=== PATIENT | female | born 1960 | race Caucasian/White ===

== ENCOUNTER → 2016-06-27 | Outpatient (CLI) | payer OTHER | END | disposition home or self-care (01) | LOC: MAMMO 15:26 | PROVIDERS: ATTEND Family Medicine | DX: Z12.31 Encounter for screening mammogram for malignant neoplasm of breast (principal) | CPT/HCPCS: G0202; 77067 ==

== ENCOUNTER → 2017-07-17 | Outpatient (CLI) | payer OTHER ==
--- NOTE | 2017-07-17 15:41 | RAD ---
Bone densitometry scan, 07/17/2017: History: Baseline screening, ovarian failure The lumbar spine and right hip were examined utilizing a DEXA technique. The bone mineral density in the lumbar spine as measured from the L1-L4 levels is 1.11 g/sq cm. This yields a T score of - 0.6 which is in the normal range. The total T score at the right hip is - 0.3, also in the normal range. IMPRESSION: Normal bone mineral density measurements.
--- NOTE | 2017-07-18 09:21 | RAD ---
DATE: 07/17/2017 EXAM: MAMMO BOBBY SCREENING BILATERAL HISTORY: Routine screening COMPARISON: 06/27/2016 This study was interpreted with the benefit of Computerized Aided Detection (CAD). The breast parenchyma is primarily fatty replaced. Breast parenchyma level density A. FINDINGS: 2-D and 3-D tomosynthesis imaging was performed in CC and MLO projections. There is a smooth 6 mm nodule in the right breast located just superior and medial to the midline. It measured 3-4 mm on the previous study. Several other scattered smooth nodules, predominantly in the left breast appear to be unchanged. Minimal benign type calcifications present. No suspicious microcalcifications have developed. IMPRESSION: A small right breast nodule has increased in size since 06/27/2016. Sonographic evaluation is suggested. BI-RADS CATEGORY: 0 INCOMPLETE: NEEDS ADDITIONAL IMAGING EVALUATION AND/OR PRIOR MAMMOGRAMS FOR COMPARISON. RECOMMENDED FOLLOW-UP: ADD ADDITIONAL IMAGING PQRS compliance statement: Patient information was entered into a reminder system with a target due date for the next mammogram. Mammography is a sensitive method for finding small breast cancers, but it does not detect them all and is not a substitute for careful clinical examination. A negative mammogram does not negate a clinically suspicious finding and should not result in delay in biopsying a clinically suspicious abnormality. "Our facility is accredited by the [employer] Mammography Program."
== END | disposition home or self-care (01) ==
LOC: DXRAD 14:54
PROVIDERS: ATTEND Family Medicine
DX: Z12.31 Encounter for screening mammogram for malignant neoplasm of breast (principal); E28.39 Other primary ovarian failure
CPT/HCPCS: 77063; 77067; 77080

== ENCOUNTER → 2017-07-24 | Outpatient (CLI) | payer OTHER ==
--- NOTE | 2017-07-24 13:33 | RAD ---
Right breast ultrasound, 07/17/2017: History: Breast nodule A targeted ultrasound exam of the right breast was performed in the upper inner quadrant. A small 5 mm hypoechoic nodule is identified at the 1:00 location, approximately 4 cm in the nipple. It lies posteriorly and probably corresponds to the mammographic abnormality. Its margins are smooth. No definite posterior acoustic enhancement or shadowing is seen. It is rounded in configuration. No internal color flow is seen. This is probably a complicated cyst. A hypovascular homogeneous solid nodule cannot be entirely excluded. No other abnormality is seen in this region. IMPRESSION: Probable benign right breast nodule as described above. Follow-up imaging beginning with repeat right breast ultrasound in 4-6 months is suggested to confirm that this is a benign process. BI-RADS 3-probably benign findings
== END | disposition home or self-care (01) ==
LOC: US 12:50
PROVIDERS: ATTEND Family Medicine
DX: R92.8 Other abnormal and inconclusive findings on diagnostic imaging of breast (principal)
CPT/HCPCS: 76641

== ENCOUNTER → 2017-10-17 | Day surgery (SDC) | payer OTHER ==
[~2017-10-17] MED LIST: ATROPINE 0.5 MG/5 ML DISP.SYRIN. IV PRN; HYDR25TA9 PO; IV RINGERS SOLUTION,LACTATED 1,000 ML IV SCH; LIDOCAINE 2% PF Vial for OR 5 ML VIAL. ONE; LISI10TA2 PO; NALOXONE 0.4 MG/ML VIAL. IV PRN; ONDANSETRON PF 4 MG/2 ML VIAL. IV PRN; PROPOFOL 20 ML IV ONE
[2017-10-17 09:56] VITALS: BP 100/57
== END | disposition home or self-care (01) ==
LOC: SURG 07:53
PROVIDERS: ATTEND Internal Medicine Gastroenterology
DX: Z12.11 Encounter for screening for malignant neoplasm of colon (principal); I10 Essential (primary) hypertension; J44.9 Chronic obstructive pulmonary disease, unspecified; Z90.49 Acquired absence of other specified parts of digestive tract; Z98.84 Bariatric surgery status; Z79.899 Other long term (current) drug therapy
CPT/HCPCS: 45378; J2704; J7120; J2001

== ENCOUNTER 2018-03-17 12:42 | Emergency (ER) | payer OTHER ==
[~2018-03-17] VITALS: Ht 170.2 cm; Wt 77.1 kg
[~2018-03-17 12:42] MED LIST changes: -ATROPINE 0.5 MG/5 ML DISP.SYRIN. IV PRN; +HYDR-2145 PO; -HYDR25TA9 PO; -IV RINGERS SOLUTION,LACTATED 1,000 ML IV SCH; -LIDOCAINE 2% PF Vial for OR 5 ML VIAL. ONE; -NALOXONE 0.4 MG/ML VIAL. IV PRN; -ONDANSETRON PF 4 MG/2 ML VIAL. IV PRN; -PROPOFOL 20 ML IV ONE
--- NOTE | 2018-03-17 13:24 | PHYS DOC ---
Adult General [facility] HPI Patient is a 57-year-old female who presents with complaint of urinary discomfort that started yesterday. She is also seen blood in her urine. She denies any fever or back pain. She rates pain as being moderate and states that she has urgency with dysuria and urinary frequency. Review of Systems Review of Systems Constitutional: Denies fever or chills [] Respiratory: Denies cough or shortness of breath [] Cardiovascular: No additional information not addressed in HPI [] GI: Denies abdominal pain, nausea, vomiting or diarrhea [] : Complains of dysuria, frequency and hematuria [] Musculoskeletal: Denies back pain or joint pain [] Allergies Allergies Allergies Coded Allergies Type Severity Reaction Last Updated Verified No Known Drug Allergies 10/09/17 No Physical Exam Physical Exam Constitutional: Well developed, well nourished, no acute distress, non-toxic appearance. [] Neck: Normal range of motion, no tenderness, supple, no stridor. [] Cardiovascular: Regular rate and rhythm, no murmur [] Lungs & Thorax: Bilateral breath sounds clear to auscultation [] Abdomen: Bowel sounds normal, soft, with suprapubic tenderness. [] Skin: Warm, dry, no erythema, no rash. [] EKG EKG [] Radiology/Procedures Radiology/Procedures [] Course & Med Decision Making Course & Med Decision Making Pertinent Labs and Imaging studies reviewed. (See chart for details) [] Dragon Disclaimer Dragon Disclaimer This electronic medical record was generated, in whole or in part, using a voice recognition dictation system. Departure Departure: Impression: Primary Impression: Urinary tract infection Disposition: 01 HOME, SELF-CARE Condition: STABLE Referrals: PAULINE REYES DO (PCP) Patient Instructions: Urinary Tract Infection Scripts Phenazopyridine Hcl (PYRIDIUM) 100 Mg Tablet 100 MG PO TID PRN for URINARY PAIN, #12 TAB Prov: MAOLU SCOTT Jr. DO 03/17/18 Sulfamethoxazole/Trimethoprim (BACTRIM DS TABLET) 1 Each Tablet 1 TAB PO BID for infection, #20 TAB Prov: MALOU SCOTT Jr. DO 03/17/18 Problem Qualifiers Primary Impression: Urinary tract infection Urinary tract infection type: site unspecified Hematuria presence: with hematuria Qualified Codes: N39.0 - Urinary tract infection, site not specified ; R31.9 - Hematuria, unspecified MALOU SCOTT Jr. DO Mar 17, 2018 13:24
[2018-03-17 14:48] LABS: BACTERIA,URINE FEW /HPF (0-FEW); BILIRUBIN,URINE NEG (NEG); CLARITY,URINE CLOUDY; COLOR,URINE AMBER; GLUCOSE,URINE NEG (NEG); NITRITE,URINE NEG (NEG); SQUAMOUS EPITHELIAL CELL,UR OCC /LPF; UROBILINOGEN,URINE 0.2 mg/dL (0.2 mg/dL); WBC,URINE >40 /HPF (0-4)
[2018-03-17] MEDS ORDERED: cefTRIAXone IV Push 1 GM VIAL. IVP ONE (14:59)
[2018-03-17] MEDS: SMZ/TMP 800/160MG TABLET. PO ONE (15:03)
[2018-03-17] MEDS: PHENAZOPYRIDINE 200 MG TABLET. PO ONE (15:04)
[2018-03-17] MEDS: cefTRIAXone IM 1 GM VIAL IM ONE (15:04)
[2018-03-17] MEDS ORDERED: SULF1TAB24 PO (15:12)
[2018-03-17] MEDS ORDERED: PHEN100T82 PO (15:12)
[2018-03-17 15:32] VITALS: BP 108/67
== END 2018-03-17 16:40 | disposition home or self-care (01) ==
LOC: ER 12:42
DX: N39.0 Urinary tract infection, site not specified (principal); R31.9 Hematuria, unspecified
CPT/HCPCS: 81001; 87086; 96372; 99283; J0696